=== PATIENT | female | born 1940 | race Hispanic/Latino ===

== ENCOUNTER 2021-11-14 19:50 | Emergency (ER) | payer OTHER ==
[2021-11-14 21:03] LABS: Basophils # (Auto) 0.1 K/mm3 (0.0-0.1); Basophils % (Auto) 0.9 % (0.0-1.8); Eosinophils # (Auto) 0.5 K/mm3 (0.0-0.4); Eosinophils % (Auto) 7.2 % (0.0-4.3); Hematocrit 30.1 % (30.3-42.9); Hemoglobin 9.9 gm/dl (10.1-14.3); Lymphocytes # (Auto) 1.3 K/mm3 (1.2-5.4); Lymphocytes % (Auto) 20.9 % (13.4-35.0); Mean Corpuscular HGB Conc 33 % (30-34); Mean Corpuscular Volume 83 fl (79-97); Monocytes # (Auto) 0.5 K/mm3 (0.0-0.8); Monocytes % (Auto) 8.3 % (0.0-7.3); Platelet Count 262 K/mm3 (140-440); Red Cell Distribution Width 14.4 % (13.2-15.2)
--- NOTE | 2021-11-14 22:15 | Emergency Department Report ---
ED ENT HPI - General Chief complaint: Nosebleed Stated complaint: NOSE BLEED Time Seen by Provider: 11/14/21 21:58 Source: patient Mode of arrival: Ambulatory Limitations: No Limitations - History of Present Illness Initial comments: 81-year-old female on Pradaxa with history of A. fib presents emerged department with a spontaneous nosebleed to the left nare of unknown etiology. States that she has been bothered by the pollen in the air and having some nasal congestion and sneezing which may have contributed to the bleeding. She reports no chest p ain or palpitations. No nausea, no vomiting. She was able to use prey nasal spray in the nose in conjunction with diuretic pinching pressure which did help to mitigate the bleeding. She presents with her daughter who is worried about her current hemoglobin status due to the bleeding would like her hemoglobin checked MD complaint: epistaxis Consistency: constant Improves with: none Worsens with: none Associated Symptoms: denies: gum swelling, toothache, sore throat, tinnitus, hearing loss, discharge from ear, rhinorrhea - Related Data Home Medications Medication Instructions Recorded Confirmed Last Taken Temazepam [Restoril] 15 mg PO QHS PRN 04/19/13 04/19/13 04/18/13 21:00 glipiZIDE [glipiZIDE ER] 5 mg PO QDAY PRN 04/19/13 04/19/13 04/19/13 08:00 metFORMIN [Glucophage] 1,000 mg PO BID 04/19/13 04/19/13 04/19/13 08:00 Previous Rx's Medication Instructions Recorded Last Taken Type Metoprolol [Lopressor TAB] 100 mg PO BID #60 tablet 04/25/13 Unknown Rx Warfarin [Coumadin] 2.5 mg PO QPM #45 tablet 04/25/13 Unknown Rx dilTIAZem [Cardizem] 60 mg PO Q6HR #120 tablet 04/25/13 Unknown Rx Allergies Allergy/AdvReac Type Severity Reaction Status Date / Time naproxen sodium [From Aleve] Allergy Swelling Verified 11/14/21 20:06 ED Dental HPI - General Chief complaint: Nosebleed Stated complaint: NOSE BLEED Time Seen by Provider: 11/14/21 21:58 Source: patient Mode of arrival: Ambulatory Limitations: No Limitations - Related Data Home Medications Medication Instructions Recorded Confirmed Last Taken Temazepam [Restoril] 15 mg PO QHS PRN 04/19/13 04/19/13 04/18/13 21:00 glipiZIDE [glipiZIDE ER] 5 mg PO QDAY PRN 04/19/13 04/19/13 04/19/13 08:00 metFORMIN [Glucophage] 1,000 mg PO BID 04/19/13 04/19/13 04/19/13 08:00 Previous Rx's Medication Instructions Recorded Last Taken Type Metoprolol [Lopressor TAB] 100 mg PO BID #60 tablet 04/25/13 Unknown Rx Warfarin [Coumadin] 2.5 mg PO QPM #45 tablet 04/25/13 Unknown Rx dilTIAZem [Cardizem] 60 mg PO Q6HR #120 tablet 04/25/13 Unknown Rx Allergies Allergy/AdvReac Type Severity Reaction Status Date / Time naproxen sodium [From Aleve] Allergy Swelling Verified 11/14/21 20:06 ED Review of Systems ROS: Stated complaint: NOSE BLEED Other details as noted in HPI Comment: All other systems reviewed and negative ED Past Medical Hx - Past Medical History Previous Medical History?: Yes Hx Hypertension: Yes Hx Congestive Heart Failure: Yes Hx Diabetes: Yes Additional medical history: high cholesterol, atrial fib - Surgical History Past Surgical History?: No - Social History Smoking Status: Never Smoker Substance Use Type: None - Medications Home Medications: Home Medications Medication Instructions Recorded Confirmed Last Taken Type Temazepam [Restoril] 15 mg PO QHS PRN 04/19/13 04/19/13 04/18/13 21:00 History glipiZIDE [glipiZIDE ER] 5 mg PO QDAY PRN 04/19/13 04/19/13 04/19/13 08:00 Hist ory metFORMIN [Glucophage] 1,000 mg PO BID 04/19/13 04/19/13 04/19/13 08:00 History Metoprolol [Lopressor TAB] 100 mg PO BID #60 tablet 04/25/13 Unknown Rx Warfarin [Coumadin] 2.5 mg PO QPM #45 tablet 04/25/13 Unknown Rx dilTIAZem [Cardizem] 60 mg PO Q6HR #120 tablet 04/25/13 Unknown Rx ED Physical Exam - General Limitations: No Limitations General appearance: alert, in no apparent distress - Head Head exam: Present: atraumatic, normocephalic - Eye Eye exam: Present: normal appearance - ENT ENT exam: Present: mucous membranes moist, other (No active epistaxis present. Area bleeding appears to be on the anterior septal wall clot is present. No active bleeding.) - Neck Neck exam: Present: normal inspection - Respiratory Respiratory exam: Present: normal lung sounds bilaterally. Absent: respiratory distress - Cardiovascular Cardiovascular Exam: Present: normal rhythm, tachycardia (Heart rate 109 during time of examination). Absent: systolic murmur, diastolic murmur, rubs, gallop - GI/Abdominal GI/Abdominal exam: Present: soft, normal bowel sounds - Extremities Exam Extremities exam: Present: normal inspection - Back Exam Back exam: Present: normal inspection - Neurological Exam Neurological exam: Present: alert, oriented X3 - Psychiatric Psychiatric exam: Present: normal affect, normal mood - Skin Skin exam: Present: warm, dry, intact, normal color. Absent: rash ED Course Vital Signs 11/14/21 11/14/21 20:03 22:22 Temperature 97.4 F L 97.6 F Pulse Rate 120 H 122 H Respiratory 18 Rate Blood Pressure 142/58 151/82 [Left] O2 Sat by Pulse 95 99 Oximetry ED Medical Decision Making - Lab Data Result diagrams: 11/14/21 20:32 - Medical Decision Making 81-year-old female presents emerged department with with epistaxis was controlled with direct pressure and Afrin which states a few occasions at home. Utilization of this medication may have caused a spike in her heart rate as well as she remains asymptomatic with a heart rate of up to 120. During examination heart rate was around 109. We will observe the patient for 1 hour with no worsening symptoms already bleeding Critical care attestation.: If time is entered above; I have spent that time in minutes in the direct care of this critically ill patient, excluding procedure time. ED Disposition Clinical Impression: Mild epistaxis, Tachycardia Disposition: 01 HOME / SELF CARE / HOMELESS Is pt being admited?: No Does the pt Need Aspirin: No Condition: Stable Instructions: Nosebleed, Adult Additional Instructions: Patient emergency department for epistaxis which concluded with pressure and nasal spray. Please be sure to follow-up with primary care provider for reevaluation and also treatment for seasonal allergies which contributed. Due to the Pradaxa there is a chance of rebleed please follow the instructions for that were provided to help to mitigate the bleeding should not restart. If you are unable to control the bleeding in the event that it does restart please return to the emergency department. Referrals: [facility] [Other] - 3-5 Days
[2021-11-14 22:22] VITALS: BP 151/82
== END 2021-11-14 22:26 | disposition home or self-care (01) ==
LOC: ED 19:50
DX: R04.0 Epistaxis (principal); I11.0 Hypertensive heart disease with heart failure; I50.9 Heart failure, unspecified; E11.9 Type 2 diabetes mellitus without complications; E78.00 Pure hypercholesterolemia, unspecified; Z88.8 Allergy status to other drugs, medicaments and biological substances; Z79.899 Other long term (current) drug therapy
CPT/HCPCS: 36415; 85025; 99283